=== PATIENT | male | born 1955 | race African-American/Black ===

== ENCOUNTER → 2016-08-07 | Outpatient (CLI) | payer OTHER ==
--- NOTE | 2016-08-07 13:58 | DI ---
EXAM: KNEE LEFT 2 VIEW LOCATION OF DICTATION: [place] HISTORY: ITS.REASON: DX TESTING injured left knee in . COMPARISON: No prior studies available for comparison. FINDINGS: There is normal alignment of the tibiofemoral and patellofemoral joints. There is no dislocation or subluxation. No fractures are identified. There is no significant degenerative joint disease. Normal osseous mineralization. No significant joint effusions. IMPRESSION: 1. No evidence for malalignment or acute fracture. 2. No significant degenerative joint disease. .
== END ==
LOC: IMA 12:37
DX: Z02.9 Encounter for administrative examinations, unspecified (principal)